=== PATIENT | male | born 1995 | race Caucasian/White ===

== ENCOUNTER 2019-05-23 01:51 | Emergency (ER) | payer OTHER ==
[~2019-05-23] VITALS: Ht 166.4 cm; Wt 84.5 kg
[~2019-05-23 01:51] MED LIST: AMOX1TAB9 PO; HYDR-3980 PO; NALO4SPR NS
[2019-05-23 01:54] VITALS: BP 118/59; PULSE 78; RESP 16; Ht 166.4 cm; Wt 84.5 kg
[2019-05-23] MEDS ORDERED: LIDOCAINE 1% (MDV) 20 ML INJ SC ONE (03:00)
[2019-05-23] MEDS ORDERED: LORAZEPAM 0.5 MG TAB PO ONE (03:00)
== END 2019-05-23 04:12 | disposition home or self-care (01) ==
LOC: FTE 01:51
DX: T16.2XXA Foreign body in left ear, initial encounter (principal); H72.92 Unspecified perforation of tympanic membrane, left ear; X58.XXXA Exposure to other specified factors, initial encounter; Y92.9 Unspecified place or not applicable
CPT/HCPCS: Z7502; Z7610; 99283